=== PATIENT | female | born 1950 | race Caucasian/White ===

== ENCOUNTER 2022-02-24 17:57 | Emergency (ER) | payer MEDICARE, BC, SELFPAY ==
[2022-02-24 17:59] VITALS: BP 123/69; PULSE 94; RESP 17; TEMP 36.8; O2SAT 98; BMI 23.8
--- NOTE | 2022-02-24 18:24 | CT_ITS ---
PROCEDURE INFORMATION: Exam: CT Thoracic Spine Without Contrast Exam date and time: 02/24/2022 7:03 PM Age: 71 years old Clinical indication: Pain in thoracic spine TECHNIQUE: Imaging protocol: Computed tomography of the thoracic spine without contrast. Radiation optimization: All CT scans at this facility use at least one of these dose optimization techniques: automated exposure control; mA and/or kV adjustment per patient size (includes targeted exams where dose is matched to clinical indication); or iterative reconstruction. COMPARISON: CT CERVICAL SPINE WO CON 02/24/2022 7:01 PM FINDINGS: Bones/joints: Moderate degenerative changes with scoliosis. No acute fracture. Soft tissues: Small hiatal hernia. Vasculature: Calcified atherosclerosis. No aneurysm. Main pulmonary arteries appears enlarged measuring 3.2 cm which can be seen with pulmonary arterial hypertension. Lungs: Streaky dependent pulmonary opacities at the left lung base. Clinical correlation recommended. Heart: Cardiomegaly. Kidneys and ureters: Cystic renal lesions measuring up to 6.5 cm which are incompletely characterized. Nonobstructing renal calcifications. IMPRESSION: Streaky dependent pulmonary opacities which may be hypoventilatory however pneumonitis should be clinically excluded. Cardiomegaly with enlarged main pulmonary artery suggesting pulmonary arterial hypertension. Nonobstructing renal calcifications which are partially visualized. Small hiatal hernia.
--- NOTE | 2022-02-24 18:24 | CT_ITS ---
PROCEDURE INFORMATION: Exam: CT Cervical Spine Without Contrast Exam date and time: 02/24/2022 7:01 PM Age: 71 years old Clinical indication: Neck pain TECHNIQUE: Imaging protocol: Computed tomography of the cervical spine without contrast. Radiation optimization: All CT scans at this facility use at least one of these dose optimization techniques: automated exposure control; mA and/or kV adjustment per patient size (includes targeted exams where dose is matched to clinical indication); or iterative reconstruction. COMPARISON: CT HEAD/BRAIN W CON 02/24/2022 6:59 PM FINDINGS: Bones/joints: Moderate severe degenerative changes most prominently at C6-C7. Mild scoliosis. No acute fracture. Lungs: Lung apices are normal. Soft tissues: No soft tissue swelling. IMPRESSION: Chronic changes without acute process.
--- NOTE | 2022-02-24 18:24 | CT_ITS ---
PROCEDURE INFORMATION: Exam: CT Head Without Contrast Exam date and time: 02/24/2022 6:59 PM Age: 71 years old Clinical indication: Pain; Headache TECHNIQUE: Imaging protocol: Computed tomography of the head without contrast. Radiation optimization: All CT scans at this facility use at least one of these dose optimization techniques: automated exposure control; mA and/or kV adjustment per patient size (includes targeted exams where dose is matched to clinical indication); or iterative reconstruction. COMPARISON: No relevant prior studies available. FINDINGS: Brain: No large territorial infarction. No hemorrhage. No mass effect or midline shift. Cerebral ventricles: No ventriculomegaly. Paranasal sinuses: No fluid levels. Mastoid air cells: Visualized mastoid air cells are well aerated. Bones/joints: No acute fracture. Soft tissues: No significant soft tissue abnormality. IMPRESSION: No acute intracranial abnormality.
--- NOTE | 2022-02-24 18:28 | XR_ITS ---
PROCEDURE INFORMATION: Exam: XR Chest Exam date and time: 02/24/2022 7:11 PM Age: 71 years old Clinical indication: Pain; Chest pressure TECHNIQUE: Imaging protocol: Radiologic exam of the chest. Views: 1 view. COMPARISON: CT THORACIC SPINE WO CON 02/24/2022 7:03 PM FINDINGS: Lungs: Hazy opacity at the left lung base. Pleural spaces: No pneumothorax. Heart/Mediastinum: No cardiomegaly. Bones/joints: Degenerative changes of the shoulders. IMPRESSION: Hazy opacity at the left lung base which may be on the basis of atelectasis or pneumonia. Follow-up to radiographic clearance is recommended.
--- NOTE | 2022-02-24 18:41 | [facility].EDGENADL ---
ED Disposition Clinical Impression: Cervical radicular pain, Torticollis UTI (urinary tract infection) Qualifiers: Urinary tract infection type: site unspecified Hematuria presence: without hematuria Qualified Code(s): N39.0 - Urinary tract infection, site not specified Disposition: Home, Self-Care Condition on Discharge: Good Instructions: DI for Cervical Radiculopathy, DI for Urinary Tract Infection (UTI) Additional Instructions: use meds and see pcp for follow up Prescriptions: levoFLOXacin [Levaquin 500mg tab] 500 mg PO DAILY #7 tab Transmission Status: Pending to [facility] Referrals: Provider,Referral, [Primary Care Provider] - - Critical Care Critical Care Time: No Attestation: On , the high probability of a clinically significant, sudden or life threatening deterioration of the following system(s) required my full and direct attention, intervention and personal management. The time I documented below is in addition to time spent performing reported procedures but includes the following listed in this critical care notation. Medical Decision Making - Medical Records Medical records reviewed: Yes: I reviewed the patient's medical records. - [place] Inquiry Pt receiving controlled substance: No Vital Signs: 02/24/22 17:59 Temperature 98.2 F Temperature Source Oral Pulse Rate [Left Radial] 94 H Respiratory Rate 17 Blood Pressure [Right Arm] 123/69 Blood Pressure Mean [Right Arm] 87 02 Sat by Pulse Oximetry 98 Oxygen Delivery Method Room Air - Lab Data Lab results reviewed: Yes: I reviewed the patient's lab results. Lab Results 02/24/22 18:38: WBC 15.7 H, RBC 4.51, Hgb 13.7, Hct 44.0, MCV 97.6, MCH 30.4, MCHC 31.2 L, RDW 12.8, Plt Count 517 H, MPV 7.8, Neut % (Auto) 85.3 H, Lymph % (Auto) 6.9 L, [place] % (Auto) 5.8, Eos % (Auto) 0.8, Baso % (Auto) 1.2, Neut # (Auto) 13.4 H, Lymph # (Auto) 1.1, [place] # (Auto) 0.9, Eos # (Auto) 0.1, Baso # (Auto) 0.2, Total Counted 100, Neutrophils % (Manual) 83 H, Lymphocytes % (Manual) 11, Monocytes % (Manual) 6, Platelet Estimate Marked increase, RBC Morphology Not Reportable, Hypochromasia 1+, ESR 34 H 02/24/22 18:38: Sodium 139, Potassium 3.5, Chloride 98, Carbon Dioxide 30, Anion Gap 14.5, BUN 13, Creatinine 0.60, Estimated Creat Clear 54, Estimated GFR 98, Est GFR ( Amer) 119, Glucose 183 H, Calcium 9.3, Total Bilirubin 0.4, AST 28, ALT 25, Alkaline Phosphatase 103, C-Reactive Protein 112.7 H, Total Protein 8.3 H, Albumin 4.5, Globulin 3.8 H, Albumin/Globulin Ratio 1.2, Procalcitonin 0.101 02/24/22 22:20: Urine Color Yellow, Urine Appearance Clear, Urine pH 6.0, Ur Specific [place] 1.025, Urine Protein Negative, Urine Glucose (UA) Negative, Urine Ketones Negative, Urine Blood Negative, Urine Nitrate Negative, Urine Bilirubin Negative, Urine Urobilinogen 1.0, Ur Leukocyte Esterase 2+ A, Urine RBC 3-5, Urine WBC 50-100, Ur Squamous Epith Cells 3-5, Calcium Oxalate Crystal 1+, Urine Bacteria 2+ Result diagrams: 02/24/22 18:38 02/24/22 18:38 Orders (Tests/Meds): ED MEDICATIONS Generic Name Dose Route Start Last Admin Trade Name Freq PRN Reason Stop Dose Admin Sodium Chloride 500 mls @ 999 mls/hr 02/24/22 21:30 02/24/22 21:22 Sod Chlor 0.9% 1000ml Bag IV 02/24/22 22:00 Not Given .Q31M MARKEL Sodium Chloride 1,000 mls @ 999 mls/hr 02/24/22 21:30 02/24/22 21:22 Sod Chlor 0.9% 1000ml Bag IV 02/24/22 22:30 999 mls/hr .Q1H1M MARKEL Administration Sodium Chloride 10 ml 02/24/22 18:24 02/24/22 21:08 Sodium Chloride 0.9% 10ml Flush Syringe IV 03/26/22 18:23 10 ml NEEDED PRN Administration Maintain IV Site Discontinued Medications Generic Name Dose Route Start Last Admin Trade Name Freq PRN Reason Stop Dose Admin Acetaminophen/Codeine Phosphate 1 packet 02/24/22 23:04 02/24/22 23:08 Acetaminophen 300mg W/Codeine 30mg Take Home Pack (6) PO 02/24/22 23:05 1 packet ONCE ONE Administration Sodium
[2022-02-24 18:54] LABS: Alanine Aminotransferase 25 U/L (12-78); Albumin Level 4.5 g/dl (3.5-5.0); Albumin/Globulin Ratio 1.2 (1.1-1.8); Alkaline Phosphatase 103 U/L (38-126); Anion Gap 14.5 mEq/L (5-15); Aspartate Amino Transferase 28 U/L (14-36); Bilirubin,Total 0.4 mg/dl (0.2-1.3); Blood Urea Nitrogen 13 mg/dl (7-17); Calcium 9.3 mg/dl (8.4-10.2); Carbon Dioxide 30 mmol/L (22.0-30.0); Chloride 98 mmol/L (98-107); Creatinine Clearance Estimated 54 mL/min (50-200); Estimated Glomerular Filt Rate 98 ml/min (>60); GFR (African American) 119 ML/MIN (>60); Globulin 3.8 g/dL (1.3-3.2); Glucose 183 mg/dl (74-100); Potassium 3.5 mmoL/L (3.5-5.1); Sodium 139 mmol/L (136-145); Total Protein,Serum 8.3 g/dl (6.3-8.2)
[2022-02-24 19:00] LABS: C-Reactive Protein 112.7 mg/L (0-4)
--- NOTE | 2022-02-24 19:01 | INFXCTL.NOTE ---
family at bedside. Iv established and blood sent to the lab
--- NOTE | 2022-02-24 19:04 | PC.NURSE ---
pt to ct
[2022-02-24 19:10] LABS: Basophils # 0.2 K/mm3 (0-0.2); Basophils % 1.2 % (0.1-2.0); Eosinophils # 0.1 K/mm3 (0.0-0.4); Eosinophils % 0.8 % (0.1-12.0); Hemoglobin 13.7 g/dL (12.2-16.2); Lymphocytes # 1.1 K/mm3 (0.7-4.5); Lymphocytes % 6.9 % (10-50); Mean Corpuscular HGB Conc 31.2 g/dL (31.8-35.4); Mean Corpuscular Hemoglobin 30.4 pg (27.0-31.2); Mean Corpuscular Volume 97.6 fl (81-99); Mean Platelet Volume 7.8 fl (7.4-10.4); Monocytes # 0.9 K/mm3 (0.1-1.0); Monocytes % 5.8 % (1.7-9.3); Neutrophils # 13.4 K/mm3 (1.8-7.8); Neutrophils % 85.3 % (37.0-80.0); Platelet Count 517 K/mm3 (142-424); Red Blood Count 4.51 M/mm3 (4.20-5.40); Red Cell Distribution Width 12.8 % (11.5-17.5); White Blood Count 15.7 K/mm3 (4.8-10.8)
[2022-02-24 19:14] LABS: Procalcitonin 0.101 ng/mL (0.0-2.0)
--- NOTE | 2022-02-24 19:17 | PC.NURSE ---
pt back from ct
--- NOTE | 2022-02-24 19:26 | PC.NURSE ---
daughter on phone with Althea Patino at this time for an update
[2022-02-24 20:16] LABS: MANUAL DIFFERENTIAL MANUAL DIFFERENTIAL (MANUAL DIFF)
--- NOTE | 2022-02-24 20:22 | PC.NURSE ---
Pt given warm blanket for comfort. No other needs.
[2022-02-24 20:56] LABS: Erythrocyte Sedimentation Rate 34 mm/hr (0-30)
--- NOTE | 2022-02-24 21:22 | PC.NURSE ---
PATIENT BECAME NAUSEATED AFTER IV MEDICATIONS. COOL COMPRESS APPLIED TO HEAD AND BAG GIVEN TO PATIENT. IVF ADMINISTERED. PATIENT STATED NAUSEA SUBSIDED AND SHE DOES NOT WANT ANYTHING FOR IT AT THIS TIME. REPOSITIONED PATIENT. BROTHER AT BEDSIDE.
[2022-02-24 22:12] LABS: Hypochromasia 1+; Lymphocytes % 11 % (10-50); Monocytes % 6 % (2-9); Neutrophils % 83 % (42-76); Platelet Estimate Marked Increase; Total Cells Counted 100
--- NOTE | 2022-02-24 22:21 | PC.NURSE ---
assisted patient off bsc, noted 350 ml yellowurine. pt assisted to raise hips and reposition in bed. perianal care provided. collected urine and sent to lab.
[2022-02-24 22:24] LABS: Microscopic, Urine URINE MICROSCOPIC (MICROSCOPIC)
[2022-02-24 22:29] LABS: Appearance,Urine CLEAR (Clear); Bilirubin,Urine Negative (Negative); Blood, Urine Negative (Negative); Color,Urine YELLOW (Yellow); Glucose,Urine (UA) Negative (Negative); Ketones,Urine Negative (Negative); Leukocyte Esterase,Urine 2+ (Negative); Nitrate,Urine Negative (Negative); Protein,Urine Negative (Negative); Specific Gravity, Urine 1.025 (1.005-1.030)
--- NOTE | 2022-02-24 23:08 | PC.NURSE ---
[place] on phone with pt's daughter to discuss to POC per pt request
[2022-02-24 23:10] LABS: Bacteria,Urine 2+ /lpf; Calcium Oxalate Crystals,Urine 1+ /lpf; WBC,Urine 50-100 #/hpf (0-3)
[2022-02-24 23:49] VITALS: BP 124/75; PULSE 90; RESP 18; TEMP 36.8; O2SAT 98
== END 2022-02-24 23:51 | disposition home or self-care (01) ==
PROVIDERS: Emergency Provider Emergency Medicine
DX: M54.12 Radiculopathy, cervical region (principal); M43.6 Torticollis; N39.0 Urinary tract infection, site not specified
CPT/HCPCS: 70450; 71045; 72125; 72128; 80053; 81001; 84145; 85007; 85025; 85651; 86140; 87086; 96365; 96366; 96375; 99284